=== PATIENT | male | born 1965 | race Two or more races ===

== ENCOUNTER 2020-04-17 05:43 | Emergency (ER) | payer SELFPAY ==
[~2020-04-17] VITALS: Ht 170.2 cm; Wt 80.3 kg
[2020-04-17 07:38] VITALS: BP 109/74
== END 2020-04-17 07:40 ==
LOC: ER 05:43
DX: S80.01XA Contusion of right knee, initial encounter (principal); F10.920 Alcohol use, unspecified with intoxication, uncomplicated; V49.9XXA Car occupant (driver) (passenger) injured in unspecified traffic accident, initial encounter; Y93.I9 Activity, other involving external motion; Y92.411 Interstate highway as the place of occurrence of the external cause; Y99.8 Other external cause status
CPT/HCPCS: 73562